=== PATIENT | female | born 1960 | race African-American/Black ===

== ENCOUNTER 2023-04-18 21:50 | Inpatient (IN) | payer MEDICAID ==
[~2023-04-18] VITALS: Ht 149.9 cm; Wt 80.7 kg
[2023-04-19] MEDS ORDERED: ONDANSETRON HCL 4MG/2ML INJ IV STA (00:14)
[2023-04-19] MEDS ORDERED: SODIUM CHLORIDE 0.9% 1,000 ML IV ONE (00:15)
[2023-04-19 01:20] LABS: BASOPHILS % 0.7 % (0.0-2.0); DIFFERENTIAL COMMENT 0; EOSINOPHILS % 0.2 % (0.0-5.0); HEMATOCRIT. 38.4 % (36.0-48.0); HEMOGLOBIN. 12.6 g/dL (12.0-16.0); LYMPHOCYTES % 29.4 % (20.0-50.0); MEAN CORPUSCULAR HEMOGLOBIN 26.2 pg (28.0-32.0); MEAN CORPUSCULAR HGB CONC 32.9 g/dL (31.0-37.0); MEAN CORPUSCULAR VOLUME 79.6 fL (81.0-99.0); MEAN PLATELET VOLUME 8.4 fl (7.4-10.4); MONOCYTES % 4.7 % (2.0-8.0); PLATELET 375 x1000/uL (130-400); RED BLOOD CELL COUNT 4.82 mill/uL (4.2-5.4); RED CELL DISTRIBUTION WIDTH 15.7 % (11.6-14.6); WHITE BLOOD COUNT 6.3 x1000/uL (4.5-11.0)
[2023-04-19 01:28] LABS: CHLORIDE 110 mEq/L (98-107); INDEX HEMOLYSI 1 (1-3); INDEX ICTERIC 1 (1-4); INDEX LIPEMIC 1 (1-3); POTASSIUM 3.4 mEq/L (3.5-5.1); SODIUM 140 mEq/L (136-145)
[2023-04-19 01:41] LABS: ALANINE AMINOTRANSFERASE 17 IU/L (13-61); ALBUMIN 3.9 g/dL (3.4-5.0); ASPARTATE AMINOTRANSFERASE 19 IU/L (15-37); BILIRUBIN TOTAL 0.2 mg/dL (0.1-1.0); CALCIUM 9.1 mg/dL (8.5-10.1); CARBON DIOXIDE 22 mEq/L (21-32); CREATININE 1.3 mg/dL (0.6-1.3); ETHANOL BLOOD 105 mg/dL (-10); PROTEIN TOTAL 8.8 g/dL (6.0-8.3); UREA NITROGEN BLOOD 47 mg/dL (7-21)
[2023-04-19 02:11] LABS: GLUCOSE 16 mg/dL (70-105)
[2023-04-19] MEDS ORDERED: DEXTROSE 50% WATER 50ML SYRINGE IV ONE (02:13)
[2023-04-19] MEDS ORDERED: DEXTROSE 50% WATER 50ML SYRINGE IV NR ×2 (02:15→02:45)
[2023-04-19] MEDS ORDERED: OCTREOTIDE ACETATE 50 MCG/ML 1ML IV NR (02:30)
[2023-04-19] MEDS ORDERED: OCTREOTIDE ACETATE 100 MCG/ML VIAL IV NR (02:54)
[2023-04-19] MEDS ORDERED: FOLIC ACID 1 MG, THIAMINE HCL 100 MG, MVI, ADULT NO.1 10 ML in DEXTROSE 5% WATER 1,000 ML IV SCH ×4 (03:00)
[2023-04-19 04:26] LABS: *AMPHETAMINES SCREEN URINE NEGATIVE (NEGATIVE); *BARBITURATES SCREEN URINE NEGATIVE (NEGATIVE); *BENZODIAZEPINES SCREEN URINE NEGATIVE (NEGATIVE); CANNABINOID URINE SCREEN NEGATIVE (NEGATIVE); ECSTASY MDMA SCREEN URINE NEGATIVE (NEGATIVE); METHADONE URINE SCREEN NEGATIVE (NEGATIVE)
[2023-04-19 04:27] LABS: *COCAINE SCREEN URINE PRESUMTIVE POSITIVE (NEGATIVE); OPIATES URINE SCREEN PRESUMTIVE POSITIVE (NEGATIVE); PHENCYCLIDINE URINE SCREEN PRESUMTIVE POSITIVE (NEGATIVE)
[2023-04-19 05:23] LABS: THYROID STIMULATING HORMONE 0.45 uIU/mL (0.36-3.74)
[2023-04-19] MEDS ORDERED: IPRATROPIUM/ALBUTEROL 0.5-3(2.5)MG/3ML NEB HHN PRN (06:30)
[2023-04-19] MEDS ORDERED: DOCUSATE SODIUM 100MG CAPSULE PO PRN (06:30)
[2023-04-19] MEDS ORDERED: ACETAMINOPHEN 325MG TABLET PO PRN ×2 (06:30)
[2023-04-19] MEDS ORDERED: CLONIDINE 0.1MG TABLET PO PRN (06:30)
[2023-04-19] MEDS ORDERED: DEXT 5%/0.45% NACL 1000ML 1,000 ML IV SCH (06:30)
[2023-04-19] MEDS ORDERED: LORAZEPAM 0.5MG TABLET PO PRN (06:30)
[2023-04-19] MEDS ORDERED: ONDANSETRON HCL 4MG/2ML INJ IV PRN (06:30)
[2023-04-19] MEDS ORDERED: ZOLPIDEM TARTRATE 5MG TABLET PO PRN (06:30)
[2023-04-19] MEDS ORDERED: GUAIFENESIN 200MG/10ML SUGAR FREE UDC PO PRN (06:30)
[2023-04-19] MEDS ORDERED: DEXTROSE 50% WATER 50ML SYRINGE IV PRN (07:15)
[2023-04-19] MEDS ORDERED: NALOXONE HCL 0.4 MG/ML 1ML VIAL IV PRN (07:30)
[2023-04-19 07:50] LABS: PHOSPHORUS 6.5 mg/dL (2.5-4.9)
[2023-04-19] MEDS ORDERED: ENOXAPARIN 40MG/0.4ML SYR SUBCUT SCH (08:00)
[2023-04-19] MEDS ORDERED: KCL 20MEQ/100ML PREMIX 100 ML IV NR (08:00)
[2023-04-19 08:14] LABS: VITAMIN B12 SERUM 1311 pg/mL (211-911)
[2023-04-19] MEDS ORDERED: FAMOTIDINE 20MG/2ML VIAL IV SCH (09:00)
[2023-04-19] MEDS ORDERED: AMLODIPINE 5MG TABLET PO SCH (09:00)
[2023-04-19] MEDS ORDERED: POTASSIUM CHLORIDE 20MEQ/PACKET PO NR (09:30)
[2023-04-19] MEDS: BLOOD SUGAR DIAGNOSTIC STRIP TEST SCH ×3 (10:43→17:30)
[2023-04-19] MEDS ORDERED: HYDRALAZINE 20MG/ML VIAL IV PRN (11:00)
[2023-04-19] MEDS ORDERED: CHLORDIAZEPOXIDE 5 MG CAPSULE PO SCH (14:00)
[2023-04-19 14:55] VITALS: BP 156/83; PULSE 7; RESP 18; TEMP 98.7
[2023-04-19 14:58] VITALS: BP 156/83; PULSE 72; RESP 20; TEMP 98.7
[2023-04-19] MEDS ORDERED: LORA-249 MT (15:53)
[2023-04-19 16:00] VITALS: BP 168/90; PULSE 75; RESP 18; TEMP 98.9
[2023-04-19 16:52] VITALS: BP 156/83; PULSE 72; RESP 20; TEMP 98.7
[2023-04-19 17:31] VITALS: BP 141/80; PULSE 70; TEMP 97.6; O2SAT 96
[2023-04-20] MEDS ORDERED: THIAMINE HCL 100 MG in SODIUM CHLORIDE 0.9% 49 ML IV SCH (01:00)
[2023-04-20] MEDS ORDERED: FOLIC ACID 1 MG in SODIUM CHLORIDE 0.9% 500 ML IV SCH (01:00)
== END 2023-04-19 18:55 | disposition home or self-care (01) | DRG 812 ==
LOC: EDBD 21:50 → ER 21:50 → EDSEX 21:50 → 7WST 04-19 04:40 → EDBEDREQSVC 04-19 07:22
PROVIDERS: ADMIT Internal Medicine; ATTEND Internal Medicine
DX: T40.2X1A Poisoning by other opioids, accidental (unintentional), initial encounter (principal); G92.8 Other toxic encephalopathy; N17.9 Acute kidney failure, unspecified; E11.649 Type 2 diabetes mellitus with hypoglycemia without coma; D50.9 Iron deficiency anemia, unspecified; F10.129 Alcohol abuse with intoxication, unspecified; D32.9 Benign neoplasm of meninges, unspecified; E87.6 Hypokalemia; T40.5X1A Poisoning by cocaine, accidental (unintentional), initial encounter; I10 Essential (primary) hypertension; Z79.899 Other long term (current) drug therapy; Z79.4 Long term (current) use of insulin; T40.991A Poisoning by other psychodysleptics [hallucinogens], accidental (unintentional), initial encounter
CPT/HCPCS: 36415; 71045; 80053; 80061; 80305; 80320; 82607; 82746; 82962; 83036; 83540; 83550; 83605; 83735; 84100; 84145; 84439; 84443; 85025; 93005; 93970; 99291; J2354; J2405; J3411; J3490; J7030; J7070; G0480